=== PATIENT | female | born 1990 | race Caucasian/White ===

== ENCOUNTER 2022-07-22 11:19 | Outpatient (CLI) | payer OTHER | END 2022-07-22 13:47 | disposition home or self-care (01) | LOC: NST 11:19 | PROVIDERS: ATTEND Obstetrics & Gynecology | DX: Z34.83 Encounter for supervision of other normal pregnancy, third trimester (principal) ==

== ENCOUNTER 2022-07-23 08:15 | Outpatient (CLI) | payer OTHER | END 2022-07-23 08:31 | disposition home or self-care (01) | LOC: NST 08:15 | PROVIDERS: ATTEND Obstetrics & Gynecology | DX: Z34.83 Encounter for supervision of other normal pregnancy, third trimester (principal) ==

== ENCOUNTER → 2022-07-26 | Outpatient (CLI) | payer OTHER ==
[~2022-07-26] VITALS: Ht 170.2 cm; Wt 90.3 kg
[~2022-07-26] MED LIST: PRENATAL + DHA1 EAC1 PO
== END | disposition left against medical advice (07) ==
LOC: SURH → OBS/DEL 10:05 → SURH 10:05 → LDR 10:05 → EDSTATUS 08-14 09:27 → SURH 08-14 11:46
PROVIDERS: ATTEND Obstetrics & Gynecology
DX: O12.13 Gestational proteinuria, third trimester (principal); Z3A.37 37 weeks gestation of pregnancy; Z20.822 Contact with and (suspected) exposure to COVID-19

== ENCOUNTER 2022-08-08 13:47 | Inpatient (IN) | payer OTHER ==
[~2022-08-08] VITALS: Ht 170.2 cm; Wt 3.6 kg
[2022-08-11] MEDS ORDERED: KETO10TA2 PO (08:22)
[2022-08-11] MEDS ORDERED: OXYC1TAB9 PO (08:23)
== END 2022-08-11 12:36 | disposition home or self-care (01) | DRG 788 ==
LOC: LDR 13:47 → OB/GYN 13:47
PROVIDERS: ADMIT Obstetrics & Gynecology Maternal & Fetal Medicine; ATTEND Obstetrics & Gynecology Maternal & Fetal Medicine
PROC: 4A1HXCZ Monitoring of Products of Conception, Cardiac Rate, External Approach (ICD-10-PCS; 2022-08-08)
PROC: 10D00Z1 Extraction of Products of Conception, Low, Open Approach (ICD-10-PCS; principal; 2022-08-08 20:00)
DX: O33.8 Maternal care for disproportion of other origin (principal); Z3A.39 39 weeks gestation of pregnancy; Z37.0 Single live birth; Z20.822 Contact with and (suspected) exposure to COVID-19